=== PATIENT | female | born 1995 | race Caucasian/White ===

== ENCOUNTER 2021-08-06 12:40 | Emergency (ER) | payer OTHER ==
[2021-08-06 13:07] VITALS: BP 123/67
[2021-08-06 13:21] LABS: BASOPHILS # (AUTO) 0.1 10^3/uL (0.0-0.1); BASOPHILS % (AUTO) 0.6 %; EOSINOPHILS # (AUTO) 0.1 10^3/uL (0.0-0.7); HCT - HEMATOCRIT 42.7 % (37.0-47.0); LYMPHOCYTES # (AUTO) 2.7 10^3/uL (1.5-3.5); LYMPHOCYTES % (AUTO) 26.8 %; MEAN CORPUSCULAR HEMOGLOBIN 29.4 pg (27.0-31.0); MEAN CORPUSCULAR HGB CONC 32.8 g/dL (32.0-36.0); MEAN CORPUSCULAR VOLUME 89.7 fL (81.0-99.0); MEAN PLATELET VOLUME 8.9 fL (7.9-10.8); MONOCYTES # (AUTO) 0.7 10^3/uL (0.0-1.0); MONOCYTES % (AUTO) 6.8 %; NEUTROPHILS # (AUTO) 6.5 10^3/uL (1.5-6.6); NEUTROPHILS % (AUTO) 64.4 %; PLT - PLATELET COUNT 231 10^3/uL (130-450); RED BLOOD COUNT 4.76 10^6/uL (4.20-5.40); RED CELL DISTRIBUTION WIDTH 12.7 % (12.0-15.0)
[2021-08-06 13:53] LABS: ALBUMIN 4.9 g/dL (3.2-5.5); ALBUMIN/GLOBULIN RATIO 1.6 (1.0-2.2); BILIRUBIN,TOTAL 0.3 mg/dL (0.2-1.0); CALCIUM 9.4 mg/dL (8.5-10.3); CREATININE 0.9 mg/dL (0.4-1.0); POTASSIUM 3.9 mmol/L (3.5-5.0)
--- NOTE | 2021-08-06 13:57 | ED Physician Documentation ---
PD HPI FEMALE - Stated complaint Stated Complaint: FEMALE - Chief complaint Chief Complaint: Abd Pain - History obtained from History obtained from: Patient - History of Present Illness Timing - onset: Yesterday Timing - duration: Days (09/22) Timing - details: Abrupt onset, Still present (Galehe had onset of some abdominal/pelvic cramping pain associated with bright vaginal bleeding which was moderate amount yesterday afternoon and again in the evening. Another episode this morning. No persistent pain. She is 6 wks EGA .), Waxing and waning Associated symptoms: Pelvic pain (cramping intermittently), Vaginal bleeding. 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 denies: Dysuria, Discharge Musculoskeletal: denies: Neck pain, Back pain Neurologic: denies: Generalized weakness, Near syncope PD PAST MEDICAL HISTORY - Past Medical History Past Medical History: No - Present Medications Home Medications: Ambulatory Orders Medication Instructions Recorded Confirmed No Known Home Medications 08/06/21 08/06/21 - Allergies Allergies/Adverse Reactions: Allergies Allergy/AdvReac Type Severity Reaction Status Date / Time No Known Drug Allergies Allergy Verified 08/06/21 13:03 PD ED PE NORMAL - Vitals Vital signs reviewed: Yes - General General: Alert and oriented X 3, No acute distress, Well developed/nourished - Abdomen Abdomen: Soft, Non tender - Female Female : Deferred - Rectal Rectal: Deferred - Back Back: No CVA TTP - Derm Derm: Normal color, Warm and dry - Neuro Neuro: Alert and oriented X 3, No motor deficit, Normal speech Results - Vitals Vitals: Vital Signs - 24 hr 08/06/21 13:03 Temperature 36.5 C Heart Rate 73 Respiratory 16 Rate Blood Pressure 123/67 O2 Saturation 99 Oxygen O2 Source Room air - Labs Labs: Laboratory Tests 08/06/21 08/06/21 08/06/21 13:15 13:15 13:15 WBC 10.0 RBC 4.76 Hgb 14.0 Hct 42.7 MCV 89.7 MCH 29.4 MCHC 32.8 RDW 12.7 Plt Count 231 MPV 8.9 Neut # (Auto) 6.5 Lymph # (Auto) 2.7 [place] # (Auto) 0.7 Eos # (Auto) 0.1 Baso # (Auto) 0.1 Absolute Nucleated RBC 0.00 Nucleated RBC % 0.0 Sodium 140 Potassium 3.9 Chloride 107 Carbon Dioxide 23 Anion Gap 10.0 BUN 10 Creatinine 0.9 Estimated GFR (MDRD) 76 L Glucose 107 H Calcium 9.4 Total Bilirubin 0.3 AST 14 ALT 11 Alkaline Phosphatase 52 Total Protein 8.0 Albumin 4.9 Globulin 3.1 Albumin/Globulin Ratio 1.6 Lipase 32 HCG, Quant 3586.00 Urine Color Urine Clarity Urine pH Ur Specific [place] Urine Protein Urine Glucose (UA) Urine Ketones Urine Occult Blood Urine Nitrite Urine Bilirubin Urine Urobilinogen Ur Leukocyte Esterase Ur Microscopic Review Urine Culture Comments Urine HCG, Qual Blood Type 08/06/21 08/06/21 13:24 14:22 WBC RBC Hgb Hct MCV MCH MCHC RDW Plt Count MPV Neut # (Auto) Lymph # (Auto) [place] # (Auto) Eos # (Auto) Baso # (Auto) Absolute Nucleated RBC Nucleated RBC % Sodium Potassium Chloride Carbon Dioxide Anion Gap BUN Creatinine Estimated GFR (MDRD) Glucose Calcium Total Bilirubin AST ALT Alkaline Phosphatase Total Protein Albumin Globulin Albumin/Globulin Ratio Lipase HCG, Quant Urine Color YELLOW Urine Clarity CLEAR Urine pH 6.0 Ur Specific [place] 1.025 Urine Protein NEGATIVE Urine Glucose (UA) NEGATIVE Urine Ketones NEGATIVE Urine Occult Blood MODERATE H Urine Nitrite NEGATIVE Urine Bilirubin NEGATIVE Urine Urobilinogen 0.2 (NORMAL) Ur Leukocyte Esterase NEGATIVE Ur Microscopic Review INDICATED Urine Culture Comments Not Reportable Urine HCG, Qual POSITIVE Blood Type O NEGATIVE PD MEDICAL DECISION MAKING - ED course Complexity details: reviewed results, considered differential (concern for early miscarriage, but eval for ectopic, etc. ), d/w patient, d/w communication consultant (I talked with Dr. King who is on-call for [facility] and will follow up with the patient in the next 2 to 3 days in the clinic.) Departure - Departure Disposition: 01 Home, Self Care Clinical Impression: Threatened miscarriage, , Vaginal bleeding Condition: Stable Instructions: ED Miscarriage Poss Follow-Up: Jignesh King DO [Provider Admit Priv/Credential] - Comments: Stay well hydrated. Follow up with OB?MACHINE STUFFER in next few days, call tomorrow for appt. Return if worse bleeding, lightheaded, fevers, worse pain, other concerns. Tylenol if needed for pains.
[2021-08-06 14:41] LABS: BILIRUBIN,URINE NEGATIVE (NEGATIVE); GLUCOSE, URINE (UA) NEGATIVE (NEGATIVE); KETONES,URINE (UA) NEGATIVE (NEGATIVE); LEUKOCYTE ESTERASE, URINE NEGATIVE (NEGATIVE); NITRITE,URINE NEGATIVE (NEGATIVE); OCCULT BLOOD,URINE MODERATE (NEGATIVE); PROTEIN,URINE NEGATIVE (NEGATIVE); UROBILINOGEN,URINE 0.2 (NORMAL) E.U./dL (NORMAL)
[2021-08-06 14:47] LABS: CLARITY,URINE CLEAR (CLEAR); HCG UR QUAL POSITIVE
[2021-08-06 15:51] LABS: BACTERIA,URINE Rare /HPF (None Seen); SQUAMOUS EPITHELIAL CELL,UR FEW Squamous (<= Few); WBC,URINE 0-3 /HPF (0-5)
--- NOTE | 2021-08-06 15:51 | Ultrasound Report ---
PROCEDURE: OB First Trimester ultrasound INDICATIONS: Vaginal bleeding OUTSIDE/PRIOR DATING DATA: Last menstrual period (LMP): 06/25/2021. LMP-based estimated date of delivery (JESSICA): 04/01/2022. First dating scan (date and location): 08/06/2021. Estimated date of delivery (JESSICA) from first dating scan: 04/02/2022. TECHNIQUE: Real-time transabdominal transvaginal scanning was performed of the fetus and maternal pelvic organs, with image documentation. COMPARISON: None FINDINGS: Single intrauterine gestational sac containing pole with crown-rump length measur ing 0.3 cm, corresponding with a 5 week 6 day gestation. Normal-appearing yolk sac seen. No cardiac m otion observed. Gestational sac is positioned in the lower uterine segment, and there is a large perigestational blee d superior gestational sac measuring 2.9 x 1.5 x 2.6 cm. Right corpus luteum cyst measures 2.7 x 2.0 x 1.9 cm. Both ovaries have appropriate size and vascular ity. Small amount of free fluid in the pelvis. Measurement variability in dating: +/- 4 weeks by LMP, +/- 7 days by mean sac diameter (use before 6 weeks gestation if crown-rump length not able to be measured), +/- 5 days by crown-rump length (6-12 weeks gestation). IMPRESSION: 1. Single intrauterine with pole corresponding to 5 week 6 day gestation. 2. Large perigestational bleed, no cardiac motion, and gestational sac in the lower uterine segment a re all consistent with threatened . Consider close interval follow-up. Reviewed by: Lebron Carlson MD on 08/06/2021 2:50 PM [place] Approved by: Lebron Carlson MD on 08/06/2021 2:50 PM AKST Station ID: [id number]
--- NOTE | 2021-08-06 15:51 | Ultrasound Report ---
PROCEDURE: OB First Trimester ultrasound INDICATIONS: Vaginal bleeding OUTSIDE/PRIOR DATING DATA: Last menstrual period (LMP): 06/25/2021. LMP-based estimated date of delivery (JESSICA): 04/01/2022. First dating scan (date and location): 08/06/2021. Estimated date of delivery (JESSICA) from first dating scan: 04/02/2022. TECHNIQUE: Real-time transabdominal transvaginal scanning was performed of the fetus and maternal pelvic organs, with image documentation. COMPARISON: None FINDINGS: Single intrauterine gestational sac containing pole with crown-rump length measur ing 0.3 cm, corresponding with a 5 week 6 day gestation. Normal-appearing yolk sac seen. No cardiac m otion observed. Gestational sac is positioned in the lower uterine segment, and there is a large perigestational blee d superior gestational sac measuring 2.9 x 1.5 x 2.6 cm. Right corpus luteum cyst measures 2.7 x 2.0 x 1.9 cm. Both ovaries have appropriate size and vascular ity. Small amount of free fluid in the pelvis. Measurement variability in dating: +/- 4 weeks by LMP, +/- 7 days by mean sac diameter (use before 6 weeks gestation if crown-rump length not able to be measured), +/- 5 days by crown-rump length (6-12 weeks gestation). IMPRESSION: 1. Single intrauterine with pole corresponding to 5 week 6 day gestation. 2. Large perigestational bleed, no cardiac motion, and gestational sac in the lower uterine segment a re all consistent with threatened . Consider close interval follow-up. Reviewed by: Lebron Carlson MD on 08/06/2021 2:49 PM [place] Approved by: Lebron Carlson MD on 08/06/2021 2:49 PM AKST Station ID: [id number]
== END 2021-08-06 17:42 | disposition home or self-care (01) ==
LOC: ED 12:40
DX: O20.0 Threatened abortion (principal); Z3A.01 Less than 8 weeks gestation of pregnancy
CPT/HCPCS: 36415; 80053; 81001; 81003; 81025; 83690; 84702; 85025; 86900; 86901; 87086; 99283; 99284

== ENCOUNTER 2021-08-14 14:42 | Outpatient (CLI) | payer OTHER | END 2021-08-14 14:43 | disposition home or self-care (01) | LOC: LAB 14:42 | PROVIDERS: ATTEND Nurse Practitioner Obstetrics & Gynecology | DX: O20.9 Hemorrhage in early pregnancy, unspecified (principal); Z67.91 Unspecified blood type, Rh negative | CPT/HCPCS: 36415; 84702; 86850 ==

== ENCOUNTER 2021-08-17 15:14 | Outpatient (CLI) | payer OTHER | END 2021-08-17 15:15 | disposition home or self-care (01) | LOC: LAB 15:14 | PROVIDERS: ATTEND Obstetrics & Gynecology | DX: O20.9 Hemorrhage in early pregnancy, unspecified (principal) | CPT/HCPCS: 36415; 84702 ==

== ENCOUNTER 2021-08-23 15:57 | Outpatient (CLI) | payer OTHER | END 2021-08-23 15:58 | disposition home or self-care (01) | LOC: LAB 15:57 | PROVIDERS: ATTEND Obstetrics & Gynecology | DX: O20.9 Hemorrhage in early pregnancy, unspecified (principal) | CPT/HCPCS: 36415; 84702 ==